=== PATIENT | male | born 1995 | race African-American/Black ===

== ENCOUNTER 2024-11-29 05:05 | Emergency (ER) | payer SELFPAY ==
[2024-11-29 05:07] VITALS: BP 159/85; PULSE 91; TEMP 36.9; O2SAT 100; BMI 29.0
--- NOTE | 2024-11-29 05:26 | XR_ITS ---
The [address] [address] Patient Name: NICKIE PAIGE MRN: [id number] date: 1995 Sex: M Assigned Patient Location: ER Current Patient Location: Accession/Order Number: [id number] Exam Date: 11/29/2024 05:42 Report Date: 11/29/2024 08:45 At the request of: ANNETTE MONTOYA MD Procedure: XR soft tissue neck LATERAL SOFT TISSUE NECK CLINICAL HISTORY: fullness sensation COMPARISON: None FINDINGS: No radiopaque foreign body. No prevertebral soft tissue swelling. Airway is patent. Epiglottis appears unremarkable. Cervical spine appears grossly unremarkable. XR/XR soft tissue neck IMPRESSION: NO ACUTE PROCESS. Impression dictated by: Reji Jang Jr., DEvonOEvon 11/29/2024 8:45 AM Dictation Location: [place] [address] Electronically authenticated by: [id number] Y Date: 11/29/2024 08:45
--- NOTE | 2024-11-29 05:33 | ED_ITS ---
HPI - SOB/Dyspnea General Chief Complaint: Shortness of Breath/Dyspnea Stated Complaint: SORE THROAT Time Seen by Provider: 11/29/24 05:15 Source: patient and other Source comment: EMS Mode of arrival: ambulance Limitations: no limitations History of Present Illness HPI Narrative: presents via squad with complaint of a sensation of a lump in his throat. Is able to eat and drink. On and off for the past month. Ongoing tonight for several hours. Denies history of anxiety. No chest pain. Throat feels sore. No fever or cough Related Data Allergies Allergy/AdvReac Type Severity Reaction Status Date / Time No Known Drug Allergies Allergy Verified 11/29/24 05:07 Review of Systems ROS Status of ROS 10 or more systems reviewed and unremark able except as noted in history and below PFSH PFSH Social History Little interest or pleasure in doing things: not at all Feeling down, depressed, or hopeless: not at all Exam Constitutional Vital Signs, click to edit/add: Last Vital Signs Temp 98.4 F 11/29/24 05:07 Pulse 91 H 11/29/24 05:07 Resp 18 11/29/24 05:07 BP 159/85 H 11/29/24 05:07 Pulse Ox 100 11/29/24 05:07 O2 Del Method Room Air 11/29/24 05:07 Common normals: no apparent distress, average body habitus, oriented x3, no limitations, healthy appearing, alert and well nourished [facility] Common normals: normocephalic Mouth: oral and palatal mucosa normal, lip normal, tongue normal and moist mucous membranes abnormal Throat: posterior oropharynx normal Eye Common normals: EOMs intact bilaterally and conjunctivae normal Respiratory Common normals: normal respiratory effort, no retractions, no use of accessory muscles and clear to auscultation bilaterally Cardio Common normals: regular rate, regular rhythm, S1 normal heart sound and S2 normal heart sound Extremity Common normals: normal to inspection and full ROM Neuro Common normals: oriented x3, CN's II-XII intact bilaterally, moves all extremities and no focal motor deficits Psych Appearance: grossly normal Course Vital Signs Vital signs: Vital Signs Temperature 98.4 F 11/29/24 05:07 Pulse Rate 91 H 11/29/24 05:07 Respiratory Rate 18 11/29/24 05:07 Blood Pressure 159/85 H 11/29/24 05:07 Pulse Oximetry 100 11/29/24 05:07 Oxygen Delivery Method Room Air 11/29/24 05:07 Temperature 98.4 F 11/29/24 05:07 Pulse Rate 91 H 11/29/24 05:07 Respiratory Rate 18 11/29/24 05:07 Blood Pressure 159/85 H 11/29/24 05:07 Pulse Oximetry 100 11/29/24 05:07 Oxygen Delivery Method Room Air 11/29/24 05:07 MDM - SOB/Dyspnea MDM Narrative Medical decision making narrative: patient presents with sensation of lump in his throat on and off for the past month. exam neg. soft tissue xray of the neck is normal. Patient informed he likely has anxiety but he appears skeptical. Advised to follow up with a family doctor to continue his workup Discharge Plan Discharge Chief Complaint: Shortness of Breath/Dyspnea Clinical Impression: Globus sensation Patient Disposition: Home, Self-Care Print Language: [place] Instructions: Anxiety (ED) Additional Instructions: follow up with a family doctor Referrals: Physician,Non-Staff, MD [Primary Care Provider] - 1 week
--- NOTE | 2024-11-29 06:01 | PC.NURSE ---
Patient does not want to take the medication. RN educated patient on the medication and patient instructed to call nurse if he would like to take it.
[2024-11-29] MEDS: HYDROXYZINE PAMOATE 25 MG CAPSULE 50 MG PO (06:40)
== END 2024-11-29 06:45 | disposition home or self-care (01) ==
PROVIDERS: Emergency Provider Internal Medicine
DX: R09.A2 Foreign body sensation, throat (principal)
CPT/HCPCS: 70360; 99283; Q0177